=== PATIENT | male | born 1995 | race Hispanic/Latino ===

== ENCOUNTER 2020-03-22 13:22 | Emergency (ER) | payer SELFPAY ==
[2020-03-22] MEDS ORDERED: hydrOXYzine HCL 25 MG TAB ONE (15:01)
[2020-03-22 15:06] LABS: Absolute Lymphocytes (CBC) 2.3 K/uL (0.7-4.9); Basophils % 0.9 % (0-1.3); Hematocrit 46.5 % (39.6-49.0); Lymphocytes % 23.5 % (15.3-44.8); MPV 11.4 fL (7.6-11.3)
[2020-03-22 15:23] LABS: ALT/SGPT 32 U/L (12-78); AST/SGOT 18 U/L (15-37); Albumin 4.5 g/dL (3.4-5.0); Alkaline Phosphatase 82 U/L (45-117); BUN Blood Urea Nitrogen 13 mg/dL (7-18); Bicarbonate 29 mmol/L (21-32); Bilirubin Direct 0.2 mg/dL (0-0.2); Bilirubin Total 0.9 mg/dL (0.2-1.0); Glucose Level 95 mg/dL (74-106); Lipase 64 U/L (73-393); Magnesium 2.2 mg/dL (1.8-2.4); Potassium 3.9 mmol/L (3.5-5.1); Protein, Total 8.6 g/dL (6.4-8.2); Sodium Level 140 mmol/L (136-145); Troponin (Emerg Dept Use Only) < 0.02 ng/mL (0.0-0.045)
--- NOTE | 2020-03-22 15:40 | EDPHYS ---
Physician Documentation [facility] Name: Gregory Vance Age: 24 yrs Sex: Male : 1995 Arrival Date: 03/22/2020 Time: 13:24 Bed 5 Private MD: ED Physician Giovanni Bhardwaj HPI: 03/22 15:38 This 24 yrs old Male presents to ER via Ambulatory with complaints of Chills, kb Decreased Appetite. 15:38 The patient presents to the emergency department with anxiety, depression. The patient kb has not experienced similar symptoms in the past. The patient has not recently seen a physician. 15:38 Onset: The symptoms/episode began/occurred 1 week(s) ago. Associated signs and kb symptoms: Pertinent positives; anxiety, chest pain, depression, nausea, decreased appetite. Severity of symptoms: At their worst the symptoms were moderate in the emergency department the symptoms are unchanged. Pt reports he has felt like he is having a mental breakdown. Reports nausea, decreased appetite, fatigue, chest pressure at times, crying for no reason, sweating but feeling cold. Symptoms are worse before going to places with large crowds. Both siblings have anxiety and depression that started out with the same symptoms. . Historical: - Allergies: 13:30 No Known Allergies; ll1 - PSHx: 13:30 Tonsillectomy; Appendectomy; ll1 - Immunization history:: Flu vaccine is not up to date. - Social history:: Smoking status: Patient reports the use of cigarette tobacco products, smokes one-half pack cigarettes per day, Patient uses alcohol, only on a social basis. street drugs, marijuana, Patient/guardian denies using IV drugs. ROS: 15:37 Constitutional: Negative for fever, chills, and weight loss, Cardiovascular: Negative kb for chest pain, palpitations, and edema, Respiratory: Negative for shortness of breath, cough, wheezing, and pleuritic chest pain, Abdomen/GI: Negative for abdominal pain, vomiting, diarrhea, and constipation. +nausea and decreased appetite MS/Extremity: Negative for injury and deformity, Skin: Negative for injury, rash, and discoloration, Neuro: Negative for headache, weakness, numbness, tingling, and seizure. 15:37 Constitutional: Positive for fatigue. 15:37 Psych: Positive for anxiety, depression, Negative for drug dependence, alcohol dependence, auditory hallucinations, visual hallucinations, homicidal ideation, insomnia, suicide gesture, suicidal ideation. Exam: 14:57 Constitutional: This is a well developed, well nourished patient who is awake, alert, kb and in no acute distress. Head/Face: Normocephalic, atraumatic. Chest/axilla: Normal chest wall appearance and motion. Nontender with no deformity. No lesions are appreciated. Cardiovascular: Regular rate and rhythm with a normal S1 and S2. No gallops, murmurs, or rubs. Normal PMI, no JVD. No pulse deficits. Respiratory: Lungs have equal breath sounds bilaterally, clear to auscultation and percussion. No rales, rhonchi or wheezes noted. No increased work of breathing, no retractions or nasal flaring. Abdomen/GI: Soft, non-tender, with normal bowel sounds. No distension or tympany. No guarding or rebound. No evidence of tenderness throughout. Skin: Warm, dry with normal turgor. Normal color with no rashes, no lesions, and no evidence of cellulitis. MS/ Extremity: Pulses equal, no cyanosis. Neurovascular intact. Full, normal range of motion. Neuro: Awake and alert, GCS 15, oriented to person, place, time, and situation. Cranial nerves II-XII grossly intact. Motor strength 5/5 in all extremities. Sensory grossly intact. Cerebellar exam normal. Normal gait. 14:57 ECG was reviewed by the Attending Physician. Vital Signs: 13:28 BP 135 / 78; Pulse 64; Resp 17; Temp 98.0; Pulse Ox 100% ; Weight 74.84 kg; Height 5 ll1 ft. 7 in. (170.18 cm); Pain 4/10; 15:06 BP 128 / 68; Pulse 54; Resp 16; Pulse Ox 99% on R/A; em 13:28 Body Mass Index 25.84 (74.84 kg, 170.18 cm) ll1 MDM: 14:23 Patient medically screened. kb 14:58 Data reviewed: vital signs, nurses notes. Data interpreted: Pulse oximetry: on room air kb is 100 %. Interpretation: normal. 15:33 Counseling: I had a detailed discussion with the patient and/or guardian regarding: the kb historical points, exam findings, and any diagnostic results supporting the discharge/admit diagnosis, lab results, the need for outpatient follow up, a family practitioner, to return to the emergency department if symptoms worsen or persist or if there are any questions or concerns that arise at home. 03/22 14:34 Order name: Basic Metabolic Panel; Complete Time: 15:27 kb 03/22 14:34 Order name: CBC with Diff; Complete Time: 15:21 kb 03/22 14:34 Order name: LFT's; Complete Time: 15:27 kb 03/22 14:34 Order name: Magnesium; Complete Time: 15:27 kb 03/22 14:34 Order name: Troponin (emerg Dept Use Only); Complete Time: 15:27 kb 03/22 14:34 Order name: Lipase; Complete Time: 15:27 kb 03/22 14:34 Order name: EKG; Complete Time: 14:34 kb 03/22 14:34 Order name: EKG - Nurse/Tech; Complete Time: 15:00 kb 03/22 14:34 Order name: IV Saline Lock; Complete Time: 14:48 kb 03/22 14:34 Order name: Labs collected and sent; Complete Time: 14:48 kb EC:57 Rate is 59 beats/min. Rhythm is regular. QRS [place] is Normal. HI interval is normal at kb 142 msec. QRS interval is normal at 82 msec. QT interval is normal at 388 msec. Administered Medications: 14:53 Drug: hydrOXYzine 25 mg Route: PO; em 15:35 Follow up: Response: No adverse reaction; Marked relief of symptoms em Disposition: 03/23 09:07 Co-signature as Attending Physician, Giovanni Bhardwaj MD I agree with the assessment and kdr plan of care. Disposition: 03/22/20 15:40 Discharged to Home. Impression: Anxiety disorder, unspecified. - Condition is Stable. - Discharge Instructions: Panic Attacks, [id number], Generalized Anxiety Disorder. - Prescriptions for Hydroxyzine HCl 25 mg Oral Tablet - take 1 tablet by ORAL route every 8 hours As needed; 30 tablet. - Medication Reconciliation Form, Thank You Letter, Antibiotic Education, Prescription Opioid Use, Family Work Release form. - Follow up: Emergency Department; When: As needed; Reason: Worsening of condition. Follow up: Private Physician; When: 2 - 3 days; Reason: Recheck today's complaints, Continuance of care, Re-evaluation by your physician. Signatures: Dispatcher [employer] EDAmina Cox, CREATIVE RESOURCE MANAGER-C CREATIVE RESOURCE MANAGER-Ckb Giovanni Bhardwaj MD MD kdr Munoz, Edgar, RN RN em Donaldo Swain RN RN ll1 Corrections: (The following items were deleted from the chart) 03/22 15:41 15:38 Pt reports he has felt like he is having a mental breakdown. Reports nausea, kb decreased appetite, fatigue, chest pressure at times, crying for no reason, sweating but feeling cold. Both siblings have anxiety and depression that started out with the same symptoms. . kb 16:07 15:40 03/22/2020 15:40 Discharged to Home. Impression: Anxiety disorder, unspecified. em Condition is Stable. Forms are Medication Reconciliation Form, Thank You Letter, Antibiotic Education, Prescription Opioid Use. Follow up: Emergency Department; When: As needed; Reason: Worsening of condition. Follow up: Private Physician; When: 2 - 3 days; Reason: Recheck today's complaints, Continuance of care, Re-evaluation by your physician. kb
--- NOTE | 2020-03-22 15:40 | ER ---
Nurse's Notes [facility] Name: Gregory Vance Age: 24 yrs Sex: Male : 1995 Arrival Date: 03/22/2020 Time: 13:24 Bed 5 Private MD: Diagnosis: Anxiety disorder, unspecified Presentation: 03/22 13:28 Chief complaint: Patient states: Anxious, chills, loss of appetite, unable to sleep ll1 well for 1 week. No fever. Coronavirus screen: Client denies travel out of the [place] in the last 14 days. At this time, the client does not indicate any symptoms associated with coronavirus-19. Ebola Screen: Patient denies travel to an Ebola-affected area in the 21 days before illness onset. Initial Sepsis Screen: Does the patient meet any 2 criteria? No. Patient's initial sepsis screen is negative. Risk Assessment: Do you want to hurt yourself or someone else? Patient reports no desire to harm self or others. Onset of symptoms was March 16, 2020. 13:28 Method Of Arrival: Ambulatory ll1 13:28 Acuity: SHU 3 ll1 Historical: - Allergies: 13:30 No Known Allergies; ll1 - PSHx: 13:30 Tonsillectomy; Appendectomy; ll1 - Immunization history:: Flu vaccine is not up to date. - Social history:: Smoking status: Patient reports the use of cigarette tobacco products, smokes one-half pack cigarettes per day, Patient uses alcohol, only on a social basis. street drugs, marijuana, Patient/guardian denies using IV drugs. Screenin:06 Abuse screen: Denies threats or abuse. Nutritional screening: No deficits noted. em Tuberculosis screening: No symptoms or risk factors identified. Fall Risk None identified. Assessment: 15:00 General: Appears in no apparent distress. comfortable, Behavior is calm, cooperative, em appropriate for age. Pain: Complains of pain in chest Pain currently is 4 out of 10 on a pain scale. Pain began 1 week ago. Neuro: Level of Consciousness is awake, alert, obeys commands, Oriented to person, place, time, situation, Appropriate for age. Cardiovascular: Reports chest pain, Capillary refill < 3 seconds Patient's skin is warm and dry. Respiratory: Airway is patent Respiratory effort is even, unlabored, Respiratory pattern is regular, symmetrical. GI: Reports nausea. Derm: Skin is intact, is healthy with good turgor, Skin is pink, warm \T\ dry. Musculoskeletal: Capillary refill < 3 seconds, Range of motion: intact in all extremities. 16:05 Reassessment: Patient appears in no apparent distress at this time. Patient and/or em family updated on plan of care and expected duration. Pain level reassessed. Patient is alert, oriented x 3, equal unlabored respirations, skin warm/dry/pink. Patient states feeling better. Patient states symptoms have improved. Vital Signs: 13:28 BP 135 / 78; Pulse 64; Resp 17; Temp 98.0; Pulse Ox 100% ; Weight 74.84 kg; Height 5 ll1 ft. 7 in. (170.18 cm); Pain 4/10; 15:06 BP 128 / 68; Pulse 54; Resp 16; Pulse Ox 99% on R/A; em 13:28 Body Mass Index 25.84 (74.84 kg, 170.18 cm) ll1 ED Course: 13:24 Patient arrived in ED. ds1 13:27 [facility]bons [facility]C [facility] kb 13:27 Giovanni Bhardwaj MD is Attending Physician. kb 13:30 Triage completed. ll1 13:30 Arm band placed on. ll1 14:30 Bakari Parson, RN is Primary Nurse. em 14:46 Initial lab(s) drawn, by mn, sent to lab. Inserted saline lock: 20 gauge in right dh3 antecubital area, using aseptic technique. Blood collected. 14:57 EKG done, by ED staff, reviewed by Amina MITCHELL. 3 15:06 Patient has correct armband on for positive identification. Placed in gown. Bed in low em position. Adult w/ patient. 16:07 No provider procedures requiring assistance completed. IV discontinued, intact, em bleeding controlled, No redness/swelling at site. Pressure dressing applied. Administered Medications: 14:53 Drug: hydrOXYzine 25 mg Route: PO; em 15:35 Follow up: Response: No adverse reaction; Marked relief of symptoms em Outcome: 15:40 Discharge ordered by . kb 16:07 Discharged to home ambulatory, with family. em 16:07 Condition: good 16:07 Discharge instructions given to patient, family, Instructed on discharge instructions, follow up and referral plans. medication usage, Demonstrated understanding of instructions, follow-up care, medications, Prescriptions given X 1. 16:07 Patient left the ED. em Signatures: Amina Gibbons, PAULA MCLAIN-Bakari Sharp, RN RN Barbara Garrett ds1 Lorena Flores 3 Donaldo Swain RN RN ll1
[2020-03-22 16:12] VITALS: TEMP 98
[2020-03-22 16:19] VITALS: BP 128/68; O2SAT 99
--- NOTE | 2020-03-23 11:41 | EKG ---
Test Date: 2020-03-22 Test Time: 14:57:42 Poacher Wringer Operator: WILBER MEASUREMENT RESULTS: Intervals: Rate: 59 DE: 142 QRSD: 82 QT: 388 QTc: 384 [place]: P: 34 DE: 142 QRS: 76 T: 43 INTERPRETIVE STATEMENTS: Sinus bradycardia with sinus arrhythmia Otherwise normal ECG Compared to ECG 09/24/2016 05:44:45 Sinus tachycardia no longer present Right-axis deviation no longer present Myocardial infarct finding no longer present Electronically Signed On 03-23-20 11:37:37 CDT by Jay Callaway
== END 2020-03-22 16:07 | disposition home or self-care (01) ==
LOC: ER 13:22
DX: F41.8 Other specified anxiety disorders (principal); F17.210 Nicotine dependence, cigarettes, uncomplicated
CPT/HCPCS: 36415; 80048; 80076; 83690; 83735; 84484; 85025; 93005; 99284

== ENCOUNTER 2024-09-22 17:55 | Emergency (ER) | payer BC, SELFPAY ==
[2024-09-22 19:10] LABS: Absolute Basophils 0.1 K/uL (0-0.5); Absolute Eosinophils 0.4 K/uL (0-0.5); Absolute Lymphocytes (CBC) 2.6 K/uL (0.7-4.9); Absolute Monocytes 0.9 K/uL (0.1-1.3); Absolute Neutrophil 6.4 K/uL (1.8-8.0); Basophils % 0.8 % (0-1.3); Eosinophils % 3.8 % (0-4.4); Hematocrit 41.8 % (39.6-49.0); Hemoglobin 14.3 g/dL (13.6-17.9); Lymphocytes % 24.8 % (15.3-44.8); MCH 31.6 pg (27.0-35.0); MCHC 34.2 g/dL (32.0-36.0); MCV 92.3 fL (80-100); MPV 9.6 fL (7.6-11.3); Monocytes % 8.4 % (3.3-12.3); Neutrophils % 62.2 % (41.7-73.7); Nucleated Red Blood Cells % 0.1 % (0-0); Platelets 177 thou/uL (152-406); RBC Red Blood Cell Count 4.52 M/uL (4.33-5.43); Red Cell Distribution Width 13.3 % (12.1-15.2)
[2024-09-22 19:21] LABS: Anion Gap 7.7 mEq/L (5.0-15.0); Magnesium 2.1 mg/dL (1.6-2.4); Potassium 3.7 mEq/L (3.5-5.1)
--- NOTE | 2024-09-22 19:48 | RAD REPORT ---
EXAMINATION: US LOWER EXTREMITY VENOUS DOPPLER BILATERAL CLINICAL INDICATION: Male, 29 years old.PAIN TECHNIQUE: Complete bilateral duplex sonography of the lower extremity veins was performed. The exami nation included compression for vein patency, color Doppler imaging and flow augmentation in response to distal compression of the distal external iliac, common femoral, femoral, popliteal, addison trista, tibial and great saphenous veins. [id number]. COMPARISON: No prior exams FINDINGS: Duplex sonography imaging demonstrates all deep examined to be fully compressible with spontaneous, p hasic and augmented flow bilaterally. IMPRESSION: No evidence of deep venous thrombosis seen in either lower extremity.
--- NOTE | 2024-09-22 20:10 | EDPHYS ---
Physician Documentation [facility] Name: Gregory Vance Age: 29 yrs Sex: Male : 1995 Arrival Date: 09/22/2024 Time: 17:55 Bed 14 Private MD: ED Physician Harrison Pablo HPI: 09/22 18:20 This 29 yrs old Male presents to ER via Ambulatory with complaints of Leg Pain cp - right. 18:20 The patient presents with pain, that is acute. The complaints affect the right leg. cp Context: resulted from an unknown cause, the patient can fully bear weight, the patient is able to ambulate, without difficulty. Onset: The symptoms/episode began/occurred 4 day(s) ago. Patient is a 29-year-old male who presents to the emergency department with complaints of pain to his right leg for the last 3 to 4 days. Patient denies any injury reports pain kind of starts in the lower leg and radiates up the leg with some pain in the bottom of the right foot. Patient reports she has also had some intermittent pain in the left leg similar to the right. Reports last night after having pain in the right foot he was rubbing it started having some tingling in his body and almost passed out after becoming lightheaded. Historical: - Allergies: 18:04 No Known Drug Allergies; ll1 - PMHx: 18:04 stroke; ll1 - PSHx: 18:04 Tonsillectomy; Appendectomy; ll1 - Immunization history:: Adult Immunizations up to date. - Infectious Disease History:: Denies. - Social history:: Smoking status: Reported history of juuling and/or vaping. Patient denies any tobacco usage or history of. ROS: 18:25 Constitutional: Negative for fever, cp 18:25 Cardiovascular: Negative for chest pain, edema, palpitations, cp 18:25 Respiratory: Negative for cough, shortness of breath, wheezing, 18:25 Abdomen/GI: Negative for abdominal pain, nausea, vomiting, and diarrhea, 18:25 : Negative for urinary symptoms, 18:25 MS/extremity: Positive for pain, tenderness, of the right leg and left leg, Negative for injury or acute deformity, decreased range of motion, paresthesias, 18:25 Neuro: Positive for near syncope, Negative for dizziness, weakness, 18:25 All other systems are negative, Exam: 18:30 Constitutional: The patient appears in no acute distress, alert, awake, comfortable, cp non-diaphoretic, non-toxic, well developed, well nourished, 18:30 Head/Face: Normocephalic, atraumatic. cp 18:30 Eyes: Periorbital structures: appear normal, Conjunctiva: normal, no exudate, no injection, Sclera: no appreciated abnormality, Lids and lashes: appear normal, bilaterally, 18:30 ENT: External ear(s): are unremarkable, Nose: is normal, Mouth: Lips: moist, Oral mucosa: moist, Posterior pharynx: Airway: no evidence of obstruction, patent, 18:30 Chest/axilla: Inspection: normal, 18:30 Cardiovascular: Rate: normal, Rhythm: regular, 18:30 Respiratory: the patient does not display signs of respiratory distress, Respirations: normal, no use of accessory muscles, no retractions, labored breathing, is not present, Breath sounds: are clear throughout, no decreased breath sounds, no stridor, no wheezing, 18:30 Abdomen/GI: Inspection: abdomen appears normal, 18:30 Back: pain, is absent, ROM is normal, 18:30 Musculoskeletal/extremity: Extremities: noted in the right leg and left leg: mild tenderness of calf area with no swelling and no erythema, Pulses: noted to be 2+ in the right dorsalis pedis artery and left dorsalis pedis artery, 18:30 Skin: cellulitis, is not appreciated, no rash present. 19:31 ECG was reviewed by the Attending Physician. cp Vital Signs: 18:04 BP 143 / 80; Pulse 70; Resp 16; Temp 98.7; Pulse Ox 100% ; Weight 68.04 kg; Height 5 ll1 ft. 7 in. ; Pain 3/10; 19:30 BP 120 / 65; Pulse 62; Resp 17; Temp 98; Pulse Ox 99% on R/A; rg5 20:24 BP 131 / 66; Pulse 63; Resp 17; Pulse Ox 99% on R/A; Pain 0/10; rg5 18:04 Body Mass Index 23.49 (68.04 kg, 170.18 cm) ll1 18:04 Pain Scale: Adult ll1 20:24 Pain Scale: Adult rg5 MDM: 20:10 Medical Screening Exam initiated cp 09/22 18:15 Order name: CBC with Diff; Complete Time: 20:05 cp 09/22 20:05 Interpretation: Reviewed. cp 09/22 18:15 Order name: BMP; Complete Time: 20:05 cp 09/22 20:06 Interpretation: Reviewed. cp 09/22 18:15 Order name: Magnesium; Complete Time: 20:05 cp 09/22 18:12 Order name: US Extremity Venous W Compression Surendra; Complete Time: 20:05 cp 09/22 20:05 Interpretation: Report reviewed. cp 09/22 18:12 Order name: EKG; Complete Time: 18:13 cp 09/22 18:12 Order name: EKG - Nurse/Tech; Complete Time: 19:45 cp EC:31 Rate is 63 beats/min. Rhythm is regular. MI interval is normal. QRS interval is normal. cp QT interval is normal. T waves are Inverted in lead aVR. Interpreted by me. Reviewed by me. Administered Medications: No medications were administered Disposition Summary: 09/22/24 20:10 Discharge Ordered Notes: Location: Home cp Problem: new cp Symptoms: have improved cp Condition: Stable cp Diagnosis - Pain in right leg cp - Pain in left leg cp Followup: cp - With: Private Physician - When: 5 - 6 days - Reason: pain continues Discharge Instructions: - Discharge Summary Sheet cp - Musculoskeletal Pain cp - How to Use Cold Therapy cp - Heat Therapy cp Forms: - Medication Reconciliation Form cp - Antibiotic Education cp - Prescription Opioid Use cp - Patient Portal Instructions cp - Leadership Thank You Letter cp Prescriptions: - Ibuprofen 800 mg Oral Tablet - take 1 tablet ORAL route every 8 hours As needed take with food; 30 tablet; cp Refills: 0, Product Selection Permitted Signatures: Dispatcher [employer] EDMS Jluis Blankenship PA PA cp Donaldo Swain RN RN ll1 Pratima Donohue, RN RN db Corrections: (The following items were deleted from the chart) 18:16 18:16 CBC+H.LAB.BRZ ordered. EDMS EDMS 18:16 18:16 BASIC METABOLIC PANEL+C.LAB.BRZ ordered. EDMS EDMS 18:16 18:16 MAGNESIUM+C.LAB.BRZ ordered. EDMS EDMS
--- NOTE | 2024-09-22 20:10 | ER ---
Nurse's Notes [facility] Name: Gregory Vance Age: 29 yrs Sex: Male : 1995 Arrival Date: 09/22/2024 Time: 17:55 Bed 14 Private MD: Diagnosis: Pain in right leg;Pain in left leg Presentation: 09/22 18:04 Chief complaint: Patient states: Entire R leg pain for 3-4 days. No trauma or falls. ll1 States both his feet and hands got numb, tingly, and he felt like passing out after rubbing his foot last night. Coronavirus screen: Client denies travel out of the [place] in the last 14 days. At this time, the client does not indicate any symptoms associated with coronavirus-19. Ebola Screen: Patient denies travel to an Ebola-affected area in the 21 days before illness onset. Initial Sepsis Screen: Does the patient meet any 2 criteria? No. Patient's initial sepsis screen is negative. Does the patient have a suspected source of infection? No. Patient's initial sepsis screen is negative. Risk Assessment: Do you want to hurt yourself or someone else? Patient reports no desire to harm self or others. Onset of symptoms was September 20, 2024. 18:04 Method Of Arrival: Ambulatory ll1 18:04 Acuity: SHU 3 ll1 Historical: - Allergies: 18:04 No Known Drug Allergies; ll1 - PMHx: 18:04 stroke; ll1 - PSHx: 18:04 Tonsillectomy; Appendectomy; ll1 - Immunization history:: Adult Immunizations up to date. - Infectious Disease History:: Denies. - Social history:: Smoking status: Reported history of juuling and/or vaping. Patient denies any tobacco usage or history of. Screenin:45 [facility] ED Fall Risk Assessment (Adult) History of falling in the last 3 months, db including since admission No falls in past 3 months (0 pts) Confusion or Disorientation No (0 pts) Intoxicated or Sedated No (0 pts) Impaired Gait No (0 pts) Mobility Assist Device Used No (0 pt) Altered Elimination No (0 pt) Score/Fall Risk Level 0 - 2 = Low Risk Oriented to surroundings, Maintained a safe environment. Abuse screen: Denies threats or abuse. Denies injuries from another. Nutritional screening: No deficits noted. Tuberculosis screening: No symptoms or risk factors identified. Assessment: 18:45 Reassessment: Patient appears in no apparent distress at this time. Patient and/or db family updated on plan of care and expected duration. Pain level reassessed. Patient is alert, oriented x 3, equal unlabored respirations, skin warm/dry/pink. General: Appears in no apparent distress. comfortable, Behavior is calm, cooperative. Pain: Complains of pain in left leg. Neuro: Level of Consciousness is awake, alert, obeys commands, Oriented to person, place, time, situation. Respiratory: Airway is patent Respiratory effort is even, unlabored, Respiratory pattern is regular, symmetrical. 19:30 General: Appears in no apparent distress. comfortable, Behavior is calm, cooperative, rg5 appropriate for age. 19:30 Pain: Complains of pain in right leg Quality of pain is described as aching. Neuro: rg5 Level of Consciousness is awake, alert, obeys commands, Oriented to person, place, time, situation, Reports numbness in right leg. Cardiovascular: Denies chest pain. Respiratory: Airway is patent Respiratory effort is even, unlabored, Respiratory pattern is regular, symmetrical, Breath sounds are clear. GI: Abdomen is flat, non-distended. : No signs and/or symptoms were reported regarding the genitourinary system. EENT: No deficits noted. Derm: Skin is intact, Skin is dry, Skin is normal, Skin temperature is warm. Musculoskeletal: Circulation, motion, and sensation intact. Range of motion: intact in all extremities. 20:08 Reassessment: No changes from previously documented assessment. Patient and/or family rg5 updated on plan of care and expected duration. Pain level reassessed. Patient is alert, oriented x 3, equal unlabored respirations, skin warm/dry/pink. Vital Signs: 18:04 BP 143 / 80; Pulse 70; Resp 16; Temp 98.7; Pulse Ox 100% ; Weight 68.04 kg; Height 5 ll1 ft. 7 in. ; Pain 3/10; 19:30 BP 120 / 65; Pulse 62; Resp 17; Temp 98; Pulse Ox 99% on R/A; rg5 20:24 BP 131 / 66; Pulse 63; Resp 17; Pulse Ox 99% on R/A; Pain 0/10; rg5 18:04 Body Mass Index 23.49 (68.04 kg, 170.18 cm) ll1 18:04 Pain Scale: Adult ll1 20:24 Pain Scale: Adult rg5 ED Course: 17:58 Patient arrived in ED. 17:58 Jluis Blankenship PA is PHCP. cp 17:58 Harrison Pablo is Attending Physician. cp 18:06 Triage completed. ll1 18:06 Arm band placed on. ll1 18:23 Pratima Donohue, RN is Primary Nurse. db 18:50 Initial lab(s) drawn, by ma, sent to lab. Inserted saline lock: 22 gauge in left db antecubital area, using aseptic technique. Blood collected. Flushed with 10 mL NS. 19:08 Luis Mathews, RN is Primary Nurse. rg5 19:30 Patient has correct armband on for positive identification. Call light in reach. Side rg5 rails up X 1. Door closed. Noise minimized. Warm blanket given. 19:30 No provider procedures requiring assistance completed. rg5 19:34 EKG done, by ED staff, reviewed by Jluis BEJARANO. oe 19:37 US Extremity Venous W Compression Surendra In Process Unspecified. EDMS 20:26 Provided Education on: post er care. rg5 20:26 IV discontinued, bleeding controlled, No redness/swelling at site. rg5 Administered Medications: No medications were administered Medication: 19:30 VIS not applicable for this client. rg5 Outcome: 20:10 Discharge ordered by MD. cp 20:25 Discharged to home ambulatory, rg5 20:25 Condition: stable 20:25 Discharge instructions given to patient, Instructed on discharge instructions, follow up and referral plans. Demonstrated understanding of instructions, follow-up care, medications, Prescriptions given X 1, 20:26 Patient left the ED. rg5 Signatures: Dispatcher [employer] EDMS Jluis Blankenship PA PA Jordi Young Donaldo Swain RN RN 1 Pratima Donohue, RN RN Karlie Claix Luis Mathews, RN RN rg5
[2024-09-22 20:53] VITALS: TEMP 98; O2SAT 96
[2024-09-22 20:55] VITALS: BP 108/64
--- NOTE | 2024-09-23 13:21 | EKG ---
Test Date: 2024-09-22 Test Time: 19:24:06 Windows Phone Developer: ZECHARIAH MEASUREMENT RESULTS: Intervals: Rate: 63 NV: 144 QRSD: 82 QT: 388 QTc: 397 [place]: P: 33 NV: 144 QRS: 88 T: 53 INTERPRETIVE STATEMENTS: Normal sinus rhythm Normal ECG Compared to ECG 03/22/2020 14:57:42 Sinus bradycardia no longer present Sinus arrhythmia no longer present Electronically Signed On 09-23-24 13:18:49 CDT by Fernando Maynard
== END 2024-09-22 20:26 | disposition home or self-care (01) ==
LOC: ER 17:55
DX: M79.605 Pain in left leg (principal); M79.604 Pain in right leg
CPT/HCPCS: 36415; 80048; 83735; 85025; 93005; 93970; 99284